=== PATIENT | female | born 1960 | race African-American/Black ===

== ENCOUNTER 2021-12-07 06:50 | Day surgery (SDC) | payer OTHER ==
[2021-12-01 10:16] VITALS: BMI 37.5
[2021-12-07] MEDS ORDERED: methylPREDNISolone Acetate 40 mg/ml Vial ONE (07:00)
[2021-12-07] MEDS ORDERED: HYDROmorphone 0.5 MG/0.5 ML SYRINGE ONE (07:00)
[2021-12-07] MEDS ORDERED: Fentanyl 100 MCG/2 ML VIAL ONE ×2 (07:00)
[2021-12-07] MEDS ORDERED: AFRIN NASAL MIST 15 ML BOT ONE (07:36)
[2021-12-07] MEDS ORDERED: Phenylephrine 10 MG/ML VIAL ONE (07:45)
[2021-12-07 07:52] LABS: BHCG - Serum Negative (NEGATIVE); Pregs Control Background? CLEAR/WHITE (CLR/WHITE); Pregs Control Bar Appear? YES (CONTROL BAR)
[2021-12-07] MEDS ORDERED: Xylocaine 1% w/ Epi 1:100K 10 ML VIAL ONE (08:15)
[2021-12-07] MEDS ORDERED: Bacitracin Zinc Ointment 30 gm TUBE ONE (08:15)
[2021-12-07] MEDS ORDERED: Oxymetazoline HCl 0.05% (30 ML BOT) ONE (08:15)
[2021-12-07] MEDS ORDERED: Ferric Subsulfate (ASTRINGYN) 8 GM VIAL ONE (08:15)
[2021-12-07] MEDS ORDERED: PHENYLEPHRINE-NS 100 MCG/ML 10 ML SYRINGE ONE (08:31)
[2021-12-07] MEDS ORDERED: Rocuronium Bromide 10 MG/ML (10ML VIAL) ONE (08:31)
[2021-12-07] MEDS ORDERED: Lidocaine 1% PF 5 ML VIAL ONE (08:31)
[2021-12-07] MEDS ORDERED: Ondansetron PF 4 MG/2 ML Vial ONE (08:31)
[2021-12-07] MEDS ORDERED: PROPOFOL 200 MG/20 ML VIAL ONE (08:31)
[2021-12-07] MEDS ORDERED: Dexamethasone 20 MG/5 ML VIAL ONE (08:31)
[2021-12-07] MEDS ORDERED: Glycopyrrolate 0.2 MG/ML 5 ML SYRINGE ONE (08:31)
[2021-12-07] MEDS ORDERED: SUGAMMADEX SODIUM 200 MG/2 ML VIAL ONE (09:17)
[2021-12-07] MEDS ORDERED: Hydrocodone-Acetamin 15 ML UDCUP ONE (10:39)
== END 2021-12-07 12:31 | disposition home or self-care (01) ==
LOC: SDC 06:50
PROVIDERS: ATTEND Otolaryngology Plastic Surgery within the Head & Neck
PROC: 09TL8ZZ Resection of Nasal Turbinate, Via Natural or Artificial Opening Endoscopic (ICD-10-PCS; principal; 2021-12-07)
PROC: 099R8ZZ Drainage of Left Maxillary Sinus, Via Natural or Artificial Opening Endoscopic (ICD-10-PCS; principal; 2021-12-07)
PROC: 0CTQXZZ Resection of Adenoids, External Approach (ICD-10-PCS; principal; 2021-12-07)
PROC: 0CTNXZZ Resection of Uvula, External Approach (ICD-10-PCS; principal; 2021-12-07)
PROC: 099Q8ZZ Drainage of Right Maxillary Sinus, Via Natural or Artificial Opening Endoscopic (ICD-10-PCS; principal; 2021-12-07)
PROC: 09TV8ZZ Resection of Left Ethmoid Sinus, Via Natural or Artificial Opening Endoscopic (ICD-10-PCS; principal; 2021-12-07)
PROC: 09TU8ZZ Resection of Right Ethmoid Sinus, Via Natural or Artificial Opening Endoscopic (ICD-10-PCS; principal; 2021-12-07)
PROC: 0CTPXZZ Resection of Tonsils, External Approach (ICD-10-PCS; principal; 2021-12-07)
DX: J32.9 Chronic sinusitis, unspecified (principal); J34.3 Hypertrophy of nasal turbinates; J35.03 Chronic tonsillitis and adenoiditis; K13.79 Other lesions of oral mucosa; J30.9 Allergic rhinitis, unspecified; I11.0 Hypertensive heart disease with heart failure; I50.9 Heart failure, unspecified; E78.5 Hyperlipidemia, unspecified; G47.30 Sleep apnea, unspecified; E03.9 Hypothyroidism, unspecified; E11.9 Type 2 diabetes mellitus without complications; K21.9 Gastro-esophageal reflux disease without esophagitis; Z87.891 Personal history of nicotine dependence; Z79.82 Long term (current) use of aspirin; Z79.84 Long term (current) use of oral hypoglycemic drugs; Z79.899 Other long term (current) drug therapy
CPT/HCPCS: 84703; 85014; 88304; 93005; 93010; J1170; J2370; J2920; J3010